=== PATIENT | male | born 1970 | race Caucasian/White ===

== ENCOUNTER 2016-09-30 09:00 | Day surgery (SDC) | payer OTHER ==
[~2016-09-30] VITALS: Ht 182.9 cm; Wt 68.1 kg
--- NOTE | 2016-09-30 07:08 | PCM.HPANE ---
Patient Data Surgeon Admitting Provider: Attending Provider:Kemar Casey DPM Primary Care Physician:Chuy Young MD Other Provider:Alyssa Murphy Anesthesia Reason for Visit Left Foot Retained Hardware, Neuritis Left Foot Ht/WT & BMI Height (Feet): 6 Height (Inches): 1 Weight (Kilograms): 68.946 Body Mass Index 20.00 Allergies Coded Allergies: codeine (Verified Adverse Reaction, Severe, Headache, 09/28/16) cyclobenzaprine (Verified Adverse Reaction, Severe, Photophobia, 09/28/16) monosodium glutamate (Verified Adverse Reaction, Severe, headache, 09/28/16) Uncoded Allergies: SKELETAL MUSCLE RELAXANTS (Allergy, Unknown, n/v, 09/30/16) TRICYCLIC COMPOUNDS (Ingr Allergy) (Allergy, Unknown, n/v, 09/30/16) Past Anesthesia History Anesthesia History: Denies:: Abnormal Airway, Anesthesia Reactions, Difficult Intubation, Fam Anesthesia Reaction, Fam Malignant Hypertherm, Malignant Hyperthermia Diabetes History Hx Diabetes?: No MRSA MRSA: No Medications Reported Medications Promethazine Supp 12.5 Mg Supp12.5 Mg RECTAL Q8H PRN For Nausea 09/28/16 Meloxicam 7.5 Mg Tablet7.5 Mg PO DAILY 30 Days Ref 0 09/28/16 Ibuprofen 800 Mg [id number] Mg PO Q4-6H PRN For Pain Ref 0 09/28/16 Cetirizine HCl (All Day Allergy)10 Mg Tab.chew10 Mg PO DAILY 11/23/[address] 40 Mg Tablet.dr40 Mg PO BID 30 Days Ref 0 02/28/14 Ondansetron ODT 8 Mg Tab.rapdis8 Mg PO Q6H PRN For Nausea 02/28/14 Discontinued Reported Medications [marijuana] No Conflict Check INH prn 11/27/15 [thrive] No Conflict Check Po Daily 11/27/15 Hydromorphone 2 Mg Tablet2 Mg PO Q4-6H PRN Pain Ref 0 11/23/15 oxyCODONE-Acetaminophen 5-325 mg 1 Each Tablet1 Tab PO Q4-6H PRN For Pain Ref 0 ALSO ORDERED POST OP 11/23/15 History History of ENT Problems?: Yes HEENT History: Positive for:: Sinus Problem (SEASONAL ALLERGIES) Denies:: Abnormal Airway Cataracts Difficult Intubation Dysphagia Hearing Problem Denture Type: None Teeth Condition: Tooth Decay Hx of Heart Problems?: No Cardiovascular History: Denies:: AICD Abdominal Aortic Aneurism Atrial Fibrillation Cardiac Surgery Chest Pain Congestive Heart Failure Coronary Artery Disease Edema Heart Murmur Hypertension Irregular Heartbeat Pacemaker Peripheral Vascular Rheumatic Fever Thrombophlebitis Valvular Heart Disease Hx of Respiratory Problem?: Yes Respiratory History: Positive for:: Asthma Cough Pneumonia (HX OF) Denies:: COPD Hemoptysis Tuberculosis Use of C-PAP Machine (SNORES) Hx Neurologic Problems?: Yes Neurological History: Denies:: CVA Dementia Other Neurological Pertinent: HX CHRONIC PAIN SYNDROME Hx of GI Problems?: Yes Other GI Pertinent History: LONG-STANDING HX OF CYCLIC VOMITING SYNDROME C/OF DIARRHEA Hx of Problems?: Yes Genitourinary History: Positive for:: Kidney Stones (HX OF) Denies:: HX of Hemodialysis Urinary Tract Infection HX of Peritoneal Dialysis: No Male Hx: Positive for:: Scrotal Mass (HX OF SPERMATOCELE) Denies:: Prostate Problems Testicular Surgery Skin History: Denies:: History Skin Disorders? Pressure Ulcers Hx Musculoskeletal Problems?: Yes Musculoskeletal History: Positive for:: Musculoskeletal Trauma (S/P LT WRIST FUSION,LT WRIST FUSION ) Osteoarthritis (JUVENILE) Denies:: Back Injury Joint Replacement Hx of Psycho/Social Problems?: Yes Psycho Social History: Positive for:: Anxiety Hx Depression Denies:: Bipolar Disorder Suicide Attempt Hx Surgeries?: Yes (LT WRIST FUSION,ORIF LT CALCANEOUS) Hx Any Other Health Problems?: Yes Other History: Denies:: Cancer Endocrine Disease Hospitalization Thyroid Disease History Blood Transfusions: Positive for:: Accept Blood Products? Blood Transfusions Denies:: Blood Transfuse Reaction Hx Diabetes: No Hx Alcohol Use: YesAlcoholic Drinks Per Day: 1-2 BEERS/DAYHx Substance Use: Yes (HX MARIJUANA USE CURRENTLY, HX REMOTE POLYSUBSTANCE ABUSE) Smoking Status: Former Smoker Have You Smoked inLast 12 mo: No Stop/Bang S-Snoring: Do You Snore Loudly: Yes T-Tired: feel tired, fatigued: Yes O-Obsered: Observed not breath: No P-Blood Pressure: treated: No B- Body Mass Index > 35 kg/m2: No A- Age over 50: No N- Neck Large Circumference: No G- Gender Male: Yes TERRY Total Score: 3 Risk Assessment Category Category 1A: Patient has history of documented sleep apnea, and HAS NOT received any narcotic, sedative or anesthesia administration during this stay. Category 1B: Patient has history of documented sleep apnea, and HAS received any narcotic , sedative or anesthesia administration during this stay Category 2: Patient has SUSPECTED Obstructive Sleep Apnea, and HAS received any narcotic , sedative or anesthesia administration during this stay. Category 3: Patient has SUSPECTED Obstructive Sleep Apnea and HAS NOT received narcotic, sedative or anesthesia administration during this stay. Category 4: Outpatient in Procedural Areas with known sleep apnea or who screen positive for High Risk via the STOP/BANG questionnaire. Exam Exam General Appearance: Alert, Oriented X3, Cooperative HEENT/AIRWAY: MP 2, Neck Movement (from), Mouth Opening (wnl) Lungs: Clear to Auscultation Heart: Exam Unremarkable Plan Impression Patient chart reviewed, patient interviewed and anesthestic plan with risks, benefits, and alternatives discussed, and informed consent obtained. ASA Physical Status: ASA2 Mod Systemic Disease Anesthetic Plan: MAC Bene/Risks/Altern/Consents: Yes HP Complete Prior to Induction: Yes Brent Snowden MD September 30, 2016 07:08
[~2016-09-30 09:00] MED LIST: CETI10TA27 PO; CeFAZolin Inj 2 GM in IV Premix 1 EACH IV ONE; IBUP800T28 PO; MELO-259 PO; ONDA8TAB10 PO; PANT40TA3 PO; [UNRECOGNIZED DRUG - CODE] RECTAL
[2016-09-30] MEDS ORDERED: Propofol 10,000 mCg/mL 20 mL Inj ONE (09:01)
[2016-09-30] MEDS ORDERED: fentaNYL-PF 50 mCg/mL 2 mL Inj ONE (09:01)
[2016-09-30] MEDS ORDERED: CeFAZolin Inj 2 GM in IV Premix 1 EACH IV ONE (09:05)
[2016-09-30] MEDS: Lactated Ringer's 1,000 ML IV SCH ×2 (09:09→10:54)
[2016-09-30 09:21] VITALS: BP 104/63; PULSE 52; RESP 16; O2SAT 96
[2016-09-30] MEDS ORDERED: Atropine 0.4 mg/mL Inj IVPUSH PRN (10:40)
[2016-09-30] MEDS ORDERED: Ondansetron 2 mg/mL 2 mL Inj IVPUSH PRN (10:40)
[2016-09-30] MEDS ORDERED: Phenylephrine 10,000 mCg/mL Inj IVPUSH PRN (10:40)
[2016-09-30] MEDS ORDERED: HYDROmorphone 1 mg/mL Inj IVPUSH PRN (10:40)
[2016-09-30] MEDS ORDERED: hydrALAZINE 20 mg/mL Inj IVPUSH PRN (10:40)
[2016-09-30] MEDS ORDERED: Lactated Ringer's 500 ML IV PRN (10:40)
[2016-09-30] MEDS ORDERED: Dexamethasone 4 mg/mL Inj IVPUSH PRN (10:40)
[2016-09-30] MEDS ORDERED: fentaNYL-PF 50 mCg/mL 2 mL Inj IVPUSH PRN (10:40)
[2016-09-30] MEDS ORDERED: Lactated Ringer's 1,000 ML IV SCH (10:40)
[2016-09-30] MEDS ORDERED: Labetalol 5 mg/mL 4 mL Inj IV PRN (10:40)
[2016-09-30] MEDS ORDERED: EPHEDrine Sulfate 50 mg/mL Inj IVPUSH PRN (10:40)
[2016-09-30] MEDS ORDERED: Bupivacaine-MPF 0.5% W/EPI 30 mL Inj INFILTRATE ONE (11:14)
[2016-09-30] MEDS ORDERED: oxyCODONE-Acetamin 5-325 mg Tablet PO PRN (11:40)
--- NOTE | 2016-09-30 11:44 | PCM.ANEP1 ---
Post Anesthesia Phase 1 PACU Phase 1 Assessment Vital Signs Vital Signs Date Time Temp Pulse Resp B/P Pulse Ox O2 Delivery O2 Flow Rate FiO2 09/30/16 09:21 36.4 52 16 104/63 96 Room Air Anesthetic Administered: MAC Level of Alertness: Awake, talking BISWAS's with Equal Strength: Yes Pain: No Nausea or Vomiting: No Cardiovascular Function and Hy: Yes Lungs: Normal Air Movement Complications: No Follow up Care: No Brent Snowden MD September 30, 2016 11:44
[2016-09-30 11:46] VITALS: BP 111/64; PULSE 67; RESP 18; O2SAT 97
--- NOTE | 2016-09-30 11:47 | PCM.PODPO ---
Podiatry Operative Report Date of Service: September 30, 2016 Date of Service September 30, 2016 Pre Operative Diagnosis Retained orthopedic hardware left foot Post Operative Diagnosis Same as preoperative diagnoses Procedure Removal hardware left foot Surgeon Surgeon: Kemar Casey DPM Assistants: None Indication for Procedure Elongated screw potentially causing nerve irritation Findings Intact internal fixation. Details of Procedure Patient was identified in the preoperative holding area. All preoperative comorbidities and allergies were identified and thoroughly discussed. The patient was transported into the operating room and placed on the operating room table in normal supine position. The patient was then prepped and draped in the normal sterile technique. 15 mL of Marcaine with epinephrine was injected to the lateral ankle and foot. A linear incision approximately 1.5 cm in length was made directly overlying the location of the end Mecca fixation once that initially her skin subcutaneous tissue was dissected bluntly with a Metzenbaum scissor the lateral nerve structures were identified and retracted out of the surgical field. Blunt dissection was carried down through subcutaneous tissue to identify deep capsule directly overlying internal fixation. Capsular tissue directly overlying internal fixation was reflected with a 15 blade exposing the screw slightly posterior to the subtalar joint which was not directly visualized. Intraoperative C-arm x-ray was utilized to verify the correct screw and the screw was removed without issue. This wound was ankle was a flush a large amounts of normal saline closure was performed in layered fashion utilizing 3. 0 Vicryl for subcutaneous tissue an 3. 0 Prolene for skin. medications occurred during this procedure. A postoperative block consisting of 10 mL of percent Marcaine with epinephrine was given. The wound was then dressed with Adaptic sterile 4 x 4 gauze Kerlix and 4 inch Coban. The patient was awoken by anesthesia and transported to the operating room no competitions occur during this procedure. Grafts, Implants: None Complications There were no periprocedural complications identified. Condition Stable Anesthetic Administered: MAC Catheters: None Output, Estimated Blood Loss: 10 Blood Admin during surgery: No Surgical Cast or Splint: None Surgical Specimen Removed: No Specimen sent to Pathology: No Post Operative Plan Ice and elevate left foot Weightbearing the left heel as tolerated with minimal activity Follow-up with 1 week Keep dressing clean dry and intact Kemar Casey DPM September 30, 2016 11:46
[2016-09-30 12:03] VITALS: BP 115/70; PULSE 68; RESP 11; O2SAT 98
== END 2016-09-30 23:59 | disposition home or self-care (01) ==
LOC: SAS 09:00
PROVIDERS: ATTEND Podiatrist Foot & Ankle Surgery
DX: T84.84XA Pain due to internal orthopedic prosthetic devices, implants and grafts, initial encounter (principal); G57.92 Unspecified mononeuropathy of left lower limb; F32.9 Major depressive disorder, single episode, unspecified; G89.4 Chronic pain syndrome; F17.210 Nicotine dependence, cigarettes, uncomplicated
CPT/HCPCS: 20680; 76000; J0690; J2250; J3010; J7120